=== PATIENT | female | born 1975 | race African-American/Black ===

== ENCOUNTER 2022-01-23 14:59 | Outpatient (CLI) | payer BC, OTHER ==
[2022-01-23 15:53] LABS: Hemoglobin 9.4 g/dL (12.0-15.5); Mean Corpuscular Hemoglobin 21.8 pg (27.0-33.0); Mean Corpuscular Volume 70.3 fl (81.6-98.3); Mean Platelet Volume 9.6 fl (7.4-10.4); Platelet Count 451 10x3/uL (150-450); RBC Distribution Width 20.2 % (11.5-14.5); Red Blood Cell (RBC) Count 4.31 10x6/uL (3.90-5.03); White Blood Cell (WBC) Count 7.6 10x3/uL (3.5-10.5)
[2022-01-23 17:08] LABS: BHCG - Serum Negative (NEGATIVE); Pregs Control Background? CLEAR/WHITE (CLR/WHITE); Pregs Control Bar Appear? YES (CONTROL BAR)
[2022-01-23 17:34] LABS: Anion Gap 15 mmol/L (10-20); BUN (Urea Nitrogen) 10 mg/dL (7.0-18.7); Calc. Creatinine Clearance 0 mL/min (70-130); Calcium 9.6 mg/dL (7.8-10.44); Carbon Dioxide 28 mmol/L (22-29); Chloride 101 mmol/L (98-107); Glucose 89 mg/dL (70-105); Potassium 3.7 mmol/L (3.5-5.1); Sodium 140 mmol/L (136-145)
== END 2022-01-23 15:00 | disposition home or self-care (01) ==
LOC: CSHLAB 14:59
PROVIDERS: ATTEND Obstetrics & Gynecology
DX: Z01.812 Encounter for preprocedural laboratory examination (principal); Z20.822 Contact with and (suspected) exposure to COVID-19
CPT/HCPCS: 80048; 84703; 85027; 86850; 86900; 86901; U0003; U0005

== ENCOUNTER 2022-01-28 06:14 | Inpatient (IN) | payer BC, OTHER ==
[2022-01-23 15:07] VITALS: BMI 40.2
[2022-01-23 15:53] LABS: Hemoglobin 9.4 g/dL (12.0-15.5); Mean Corpuscular Hemoglobin 21.8 pg (27.0-33.0); Mean Corpuscular Volume 70.3 fl (81.6-98.3); Mean Platelet Volume 9.6 fl (7.4-10.4); Platelet Count 451 10x3/uL (150-450); RBC Distribution Width 20.2 % (11.5-14.5); Red Blood Cell (RBC) Count 4.31 10x6/uL (3.90-5.03); White Blood Cell (WBC) Count 7.6 10x3/uL (3.5-10.5)
[2022-01-23 17:08] LABS: BHCG - Serum Negative (NEGATIVE); Pregs Control Background? CLEAR/WHITE (CLR/WHITE); Pregs Control Bar Appear? YES (CONTROL BAR)
[2022-01-23 17:34] LABS: Anion Gap 15 mmol/L (10-20); BUN (Urea Nitrogen) 10 mg/dL (7.0-18.7); Calc. Creatinine Clearance 0 mL/min (70-130); Calcium 9.6 mg/dL (7.8-10.44); Carbon Dioxide 28 mmol/L (22-29); Chloride 101 mmol/L (98-107); Glucose 89 mg/dL (70-105); Potassium 3.7 mmol/L (3.5-5.1); Sodium 140 mmol/L (136-145)
[~2022-01-28 06:14] MED LIST: CeleCOXIB 100 MG CAP ONE; Gabapentin 300 MG CAP ONE; Lidocaine 1% MPF 2 ML VIAL ONE
[2022-01-28] MEDS ORDERED: Bupivacaine PF 0.5% 30 ML VIAL ONE (07:09)
[2022-01-28] MEDS ORDERED: EPINEPHrine 1 MG/ML AMP ONE (07:09)
[2022-01-28] MEDS ORDERED: Ketamine 50 MG/ML (10ML VIAL) ONE (07:17)
[2022-01-28] MEDS ORDERED: HYDROmorphone 0.5 MG/0.5 ML SYRINGE ONE ×2 (07:18→10:18)
[2022-01-28] MEDS ORDERED: Lidocaine 2% PF 5 ML VIAL ONE (07:19)
[2022-01-28] MEDS ORDERED: Glycopyrrolate 0.2 MG/ML 5 ML SYRINGE ONE (07:19)
[2022-01-28] MEDS ORDERED: Fentanyl 100 MCG/2 ML VIAL ONE ×2 (07:19→11:03)
[2022-01-28] MEDS ORDERED: PROPOFOL 20 ML ONE (07:19)
[2022-01-28] MEDS ORDERED: Ketorolac Tromethamine 30 MG/ML VIAL ONE (07:19)
[2022-01-28] MEDS ORDERED: Dexamethasone 20 MG/5 ML VIAL ONE (07:19)
[2022-01-28] MEDS ORDERED: Rocuronium Bromide 10 MG/ML (10ML VIAL) ONE (07:19)
[2022-01-28] MEDS ORDERED: Ondansetron PF 4 MG/2 ML Vial ONE (07:19)
[2022-01-28] MEDS ORDERED: ceFAZolin 2 GM/Dextrose 50 ML IVPB ONE (07:23)
[2022-01-28] MEDS ORDERED: Midazolam HCl 2 mg/2 ml Vial ONE (07:27)
[2022-01-28] MEDS ORDERED: Zolpidem Tartrate 5 MG TAB PO PRN ×2 (07:30→10:15)
[2022-01-28] MEDS ORDERED: Promethazine HCl 25 MG/ML VIAL IM PRN ×2 (07:30→10:15)
[2022-01-28] MEDS ORDERED: Ropivacaine HCl/PF 200 MG in Premix Bag 1 BAG NERVE BLCK SCH (07:30)
[2022-01-28] MEDS ORDERED: Ondansetron PF 4 MG/2 ML Vial IVP PRN ×2 (07:30→10:15)
[2022-01-28] MEDS ORDERED: PHENYLEPHRINE-NS 100 MCG/ML 10 ML SYRINGE ONE (07:55)
[2022-01-28] MEDS ORDERED: ePHEDrine Sulfate 50 MG/10 ML VIAL ONE (07:58)
[2022-01-28] MEDS ORDERED: Ropivacaine 0.2% 550 ML 550 ML NERVE BLCK SCH (08:30)
[2022-01-28] MEDS ORDERED: diphenhydrAMINE 50 MG/ML VIAL IM/IV PRN (10:15)
[2022-01-28] MEDS ORDERED: diphenhydrAMINE 25 MG CAP PO PRN ×2 (10:15→11:54)
[2022-01-28] MEDS ORDERED: fentaNYL Citrate/PF 1,000 MCG in Sodium Chloride 0.9% 30 ML IV PRN (10:15)
[2022-01-28] MEDS ORDERED: Naloxone HCl 0.4 mg/ml Vial IV PRN (10:15)
[2022-01-28] MEDS ORDERED: Ropivacaine HCl/PF 750 ML in Premix Bag 1 BAG NERVE BLCK SCH (11:30)
[2022-01-28] MEDS ORDERED: Ropivacaine 0.2% 550 ML 750 ML NERVE BLCK SCH (11:30)
[2022-01-28] MEDS ORDERED: Simethicone Chewable 80 MG TAB PO PRN (11:54)
[2022-01-28] MEDS ORDERED: Acetaminophen 325 MG TAB PO PRN (11:54)
[2022-01-28] MEDS ORDERED: Bisacodyl 10 MG SUPP PR PRN (11:54)
[2022-01-28] MEDS ORDERED: Morphine 4 MG/ML VIAL SLOW IVP PRN ×2 (11:54→12:04)
[2022-01-28] MEDS ORDERED: Estradiol 0.1mg/24 Hour Patch (Weekly) TD SCH (11:54)
[2022-01-28] MEDS ORDERED: HYDROcodone/Acetaminophen 5/325 mg Tablet PO PRN ×2 (11:54)
[2022-01-28] MEDS ORDERED: Ketorolac Tromethamine 30 MG/ML VIAL IVP SCH (12:00)
[2022-01-28] MEDS: Ketorolac Tromethamine 30 MG/ML VIAL IVP SCH ×2 (15:14→21:09)
[2022-01-28] MEDS: Sodium Chloride 0.9% 1,000 ML IV SCH (16:58)
[2022-01-28] MEDS: Lactated Ringer's 1,000 ML IV SCH (16:58)
[2022-01-29] MEDS: Sodium Chloride 0.9% 1,000 ML IV SCH ×4 (02:45→17:21)
[2022-01-29] MEDS: Ketorolac Tromethamine 30 MG/ML VIAL IVP SCH ×2 (04:10→08:42)
[2022-01-29] MEDS ORDERED: Amlodipine 5 MG TAB PO SCH (04:30)
[2022-01-29] MEDS ORDERED: Hydrochlorothiazide 25 MG TAB PO SCH (04:30)
[2022-01-29 05:11] LABS: Hemoglobin 8.8 g/dL (12.0-15.5); Mean Corpuscular Hemoglobin 21.8 pg (27.0-33.0); Mean Corpuscular Volume 68.2 fl (81.6-98.3); Mean Platelet Volume 9.7 fl (7.4-10.4); Platelet Count 405 10x3/uL (150-450); RBC Distribution Width 19.8 % (11.5-14.5); Red Blood Cell (RBC) Count 4.03 10x6/uL (3.90-5.03); White Blood Cell (WBC) Count 14.4 10x3/uL (3.5-10.5)
[2022-01-29] MEDS: Lactated Ringer's 1,000 ML IV SCH ×4 (08:12→17:21)
[2022-01-29] MEDS: HYDROcodone/Acetaminophen 5/325 mg Tablet PO PRN ×3 (09:41→23:28)
[2022-01-29] MEDS: Ibuprofen 800 MG TAB PO SCH ×2 (15:04→21:08)
[2022-01-29] MEDS: Labetalol HCl 100 MG/20 ML VIAL SLOW IVP PRN (17:37)
[2022-01-30] MEDS: Labetalol HCl 100 MG/20 ML VIAL SLOW IVP PRN ×2 (01:11→06:45)
[2022-01-30] MEDS: HYDROcodone/Acetaminophen 5/325 mg Tablet PO PRN ×2 (05:17→12:51)
[2022-01-30] MEDS: Ibuprofen 800 MG TAB PO SCH (05:17)
[2022-01-30] MEDS ORDERED: Hydrochlorothiazide 25 MG TAB PO SCH (09:00)
[2022-01-30] MEDS ORDERED: Amlodipine 5 MG TAB PO SCH (09:00)
[2022-01-30 11:37] VITALS: BP 159/67; TEMP 97.8
[2022-02-02] MEDS ORDERED: Ibuprofen 800 MG TAB PO SCH (22:00)
[2022-02-03] MEDS ORDERED: Ibuprofen 800 MG TAB PO SCH (06:00)
== END 2022-01-30 16:00 | disposition home or self-care (01) | DRG 743 ==
LOC: CSHSDC 06:14 → CSHPP 11:54
PROVIDERS: ADMIT Obstetrics & Gynecology; ATTEND Obstetrics & Gynecology
PROC: 0UT90ZZ Resection of Uterus, Open Approach (ICD-10-PCS; principal; 2022-01-28)
PROC: 0UT20ZZ Resection of Bilateral Ovaries, Open Approach (ICD-10-PCS; 2022-01-28)
PROC: 0UT70ZZ Resection of Bilateral Fallopian Tubes, Open Approach (ICD-10-PCS; 2022-01-28)
DX: D25.9 Leiomyoma of uterus, unspecified (principal); N92.0 Excessive and frequent menstruation with regular cycle; I10 Essential (primary) hypertension; D50.0 Iron deficiency anemia secondary to blood loss (chronic); G89.29 Other chronic pain; Z80.0 Family history of malignant neoplasm of digestive organs; Z80.41 Family history of malignant neoplasm of ovary; Z98.51 Tubal ligation status; Z79.899 Other long term (current) drug therapy; Z20.822 Contact with and (suspected) exposure to COVID-19
CPT/HCPCS: 36415; 80048; 84703; 85027; 86850; 86900; 86901; 88307; 93005; 93010; A4306; J0171; J0690; J1100; J1170; J1885; J2001; J2250; J2405; J2550; J2704; J2795; J3010; J3490; J7050; S0020; U0003; U0005